=== PATIENT | male | born 1960 | race Caucasian/White ===

== ENCOUNTER 2019-08-15 15:46 | Emergency (ER) | payer OTHER ==
[~2019-08-15] VITALS: Ht 180.3 cm; Wt 59.0 kg
[2019-08-15 15:50] VITALS: BP 97/60
--- NOTE | 2019-08-15 15:53 | NUR ---
[place] [employer] AT BEDSIDE TO SPEAK W/ PT. OFFICER Vida FERNANDEZ.
[2019-08-15] MEDS ORDERED: NACL 0.9% 1,000 ML IV ONE (16:20)
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
[2019-08-15 17:14] LABS: BASOPHILS % (AUTO) 0.3 % (0.0-2.0); EOSINOPHILS # (AUTO) 0.1 K/uL (0-0.4); EOSINOPHILS % (AUTO) 0.8 % (0.0-4.0); HEMATOCRIT 39.3 % (36-52); HEMOGLOBIN 12.7 g/dL (12.0-18.0); LYMPHOCYTES # (AUTO) 1.2 K/uL (2.0-11.5); LYMPHOCYTES % (AUTO) 16.9 % (20.5-51.1); MEAN CORPUSCULAR HEMOGLOBIN 32 pg (27-31); MEAN CORPUSCULAR HGB CONC 32 g/dL (33-37); MEAN CORPUSCULAR VOLUME 98.7 fL (80-94); MONOCYTES # (AUTO) 0.8 K/uL (0.8-1.0); MONOCYTES % (AUTO) 10.7 % (1.7-9.3); NEUTROPHILS # (AUTO) 5.1 K/uL (1.8-7.7); NEUTROPHILS % (AUTO) 71.3 % (42.2-75.2); PLATELET COUNT (AUTO) 255 K/uL (140-450); RED BLOOD CELL COUNT(AUTO) 3.98 MIL/uL (4.20-6.10); RED CELL DISTRIBUTION WIDTH 13.1 % (11.6-13.7); WHITE BLOOD COUNT (AUTO) 7.2 K/uL (4.8-10.8)
[2019-08-15] MEDS ORDERED: KETOROLAC 15 MG/ML VIAL IVP ONE (17:35)
[2019-08-15 18:02] LABS: PROTHROMBIN TIME 10.2 secs (10.8-13.4)
[2019-08-15 18:07] LABS: CARBON DIOXIDE 24.8 mmol/L (21-32); POTASSIUM 3.8 mmol/L (3.5-5.1)
[2019-08-15 18:08] LABS: ALBUMIN 2.8 g/dL (3.4-5.0); CREATININE 1.1 mg/dL (0.7-1.3); TOTAL BILIRUBIN 0.2 mg/dL (0.0-1.0)
--- NOTE | 2019-08-15 18:40 | NUR ---
TO CT VIA W/C.
--- NOTE | 2019-08-15 19:05 | NUR ---
REPORT GIVEN TO ZINA HERNANDEZ. ALL CARE TRANSFERRED.
--- NOTE | 2019-08-15 19:12 | NUR ---
PT BACK FROM CT
[2019-08-15 20:15] VITALS: BP 128/90
--- NOTE | 2019-08-15 20:15 | NUR ---
PT DISCHARGED WITH PAPERWORK. RX MOTRIN, VENTOLIN INHALER. EDUCATED PT REGARDING MEDICATIONS AND S/E. EDUCATED PT REGARDING D/C DIAGNOSIS AND INSTRUCTIONS. PT VERBALIZED UNDERSTANDING OF TEACHING. TOLD PT TO FOLLOW UP WITH PCP AND WHEN TO RETURN TO ED. PT VSS. ALL QUESTIONS ANSWERED.
== END 2019-08-15 20:15 | disposition home or self-care (01) ==
LOC: MED 15:46
DX: S20.212A Contusion of left front wall of thorax, initial encounter (principal); J44.9 Chronic obstructive pulmonary disease, unspecified; Z76.0 Encounter for issue of repeat prescription; Y08.89XA Assault by other specified means, initial encounter; Y93.89 Activity, other specified; Y92.89 Other specified places as the place of occurrence of the external cause; Y99.8 Other external cause status
CPT/HCPCS: 36415; 71045; 74177; 80053; 85025; 85610; 96374; 99284; J1885; J7030; Q0092; Q9967

== ENCOUNTER 2020-01-03 19:03 | Emergency (ER) | payer OTHER ==
[~2020-01-03] VITALS: Ht 180.3 cm; Wt 59.0 kg
[2020-01-03 19:22] VITALS: BP 131/62
--- NOTE | 2020-01-03 19:22 | NUR ---
PT AMBULATORY WITH STEADY GAIT TO BED #9
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
--- NOTE | 2020-01-03 19:36 | NUR ---
Dr. Loomis examining patient.
[2020-01-03 19:51] VITALS: BP 131/62
--- NOTE | 2020-01-03 19:51 | NUR ---
Patient discharged with v/s stable. Written and verbal after care instructions given and explained. Patient alert, oriented and verbalized understanding of instructions. Ambulatory with steady gait. All questions addressed prior to discharge. ID band removed. Patient advised to follow up with PMD. Rx of NAPROSYN, BACTRIM given. Patient educated on indication of medication including possible reaction and side effects. Opportunity to ask questions provided and answered.
== END 2020-01-03 19:51 | disposition home or self-care (01) ==
LOC: MED 19:03
DX: L02.211 Cutaneous abscess of abdominal wall (principal)
CPT/HCPCS: 99283

== ENCOUNTER 2020-01-13 16:53 | Emergency (ER) | payer OTHER ==
[~2020-01-13] VITALS: Ht 180.3 cm; Wt 60.3 kg
[2020-01-13 16:54] VITALS: BP 127/85
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
--- NOTE | 2020-01-13 17:23 | NUR ---
DR BRUNO AT BEDSIDE EXAMINING PT
[2020-01-13 17:42] VITALS: BP 127/85
--- NOTE | 2020-01-13 17:44 | NUR ---
Patient discharged with v/s stable. Written and verbal after care instructions given and explained. Patient alert, oriented and verbalized understanding of instructions. Ambulatory with steady gait. All questions addressed prior to discharge. ID band removed. Patient advised to follow up with PMD. Rx of BACITRACIN AND BACTRIM given. Patient educated on indication of medication including possible reaction and side effects. Opportunity to ask questions provided and answered.
== END 2020-01-13 17:44 | disposition home or self-care (01) ==
LOC: MED 16:53
DX: L02.216 Cutaneous abscess of umbilicus (principal); F17.200 Nicotine dependence, unspecified, uncomplicated; Z48.01 Encounter for change or removal of surgical wound dressing
CPT/HCPCS: 99283

== ENCOUNTER 2020-02-23 09:40 | Emergency (ER) | payer OTHER ==
[~2020-02-23] VITALS: Ht 170.2 cm; Wt 59.0 kg
--- NOTE | 2020-02-23 09:40 | NUR ---
Patient BIBA ALS, transferred to bed 2. RN evaluating patient at bedside.
--- NOTE | 2020-02-23 09:46 | NUR ---
Dr. Camargo is evaluating the patient at bedside.
[2020-02-23] MEDS ORDERED: MORPHINE SULFATE 4 MG/ML SYR IVP ONE (09:50)
[2020-02-23] MEDS ORDERED: ONDANSETRON 4 MG/2 ML VIAL IVP ONE (09:50)
[2020-02-23 09:58] VITALS: BP 129/56
--- NOTE | 2020-02-23 10:06 | NUR ---
c/o sudden onset of sharp cramping type pain lower abdomen s/p eating sardines this am[[denies n/v/d at this time--- denies injury
--- NOTE | 2020-02-23 10:13 | NUR ---
urinal placed by bedside; pt reminded to provide urine sample
--- NOTE | 2020-02-23 10:20 | NUR ---
pt admits to have had contrast iv before with no complications. pt signed consent for ct with contrast.
[2020-02-23 10:21] LABS: ALBUMIN 3.6 g/dL (3.4-5.0); ANION GAP 11.7 (8-16); CREATININE 1.5 mg/dL (0.6-1.3); POTASSIUM 3.7 mmol/L (3.5-5.1); TOTAL BILIRUBIN 0.2 mg/dL (0.0-1.0)
[2020-02-23 10:28] LABS: BASOPHILS % (AUTO) 0.2 % (0.0-2.0); EOSINOPHILS % (AUTO) 0.3 % (0.0-4.0); HEMATOCRIT 39.6 % (36-52); HEMOGLOBIN 13.1 g/dL (12.0-18.0); LYMPHOCYTES # (AUTO) 0.9 K/uL (2.0-11.5); LYMPHOCYTES % (AUTO) 12.3 % (20.5-51.1); MEAN CORPUSCULAR HEMOGLOBIN 35 pg (27-31); MEAN CORPUSCULAR HGB CONC 33 g/dL (33-37); MEAN CORPUSCULAR VOLUME 104.3 fL (80-94); MONOCYTES # (AUTO) 0.4 K/uL (0.8-1.0); MONOCYTES % (AUTO) 5.8 % (1.7-9.3); NEUTROPHILS # (AUTO) 6.2 K/uL (1.8-7.7); NEUTROPHILS % (AUTO) 81.4 % (42.2-75.2); PLATELET COUNT (AUTO) 188 K/uL (140-450); RED CELL DISTRIBUTION WIDTH 12.2 % (11.6-13.7); WHITE BLOOD COUNT (AUTO) 7.6 K/uL (4.8-10.8)
[2020-02-23] MEDS ORDERED: NACL 0.9% 1,000 ML IV ONE (10:50)
[2020-02-23 10:54] LABS: ACETAMINOPHEN < 0.5 ug/ml (10-30)
--- NOTE | 2020-02-23 11:17 | NUR ---
Patient returned from CT scan. RN re-evaluating patient at bedside.
[2020-02-23] MEDS ORDERED: KETOROLAC 30 MG/ML VIAL IVP ONE (12:15)
--- NOTE | 2020-02-23 12:16 | NUR ---
pt easy to awaken---encouraged again to provide urine sapmple handed urinal to pt --
--- NOTE | 2020-02-23 12:22 | NUR ---
pt admits pain increases with much movement---medicated as written for pain control lab notified of urine sample provided
[2020-02-23 12:36] LABS: APPEARANCE,URINE CLEAR (CLEAR); BILIRUBIN,URINE NEGATIVE (NEGATIVE); BLOOD, URINE 1+ (NEGATIVE); COLOR,URINE YELLOW (YELLOW); LEUKOCYTE ESTERASE ,URINE NEGATIVE (NEGATIVE); NITRITE, URINE NEGATIVE (NEGATIVE); PH,URINE 7.5 (5.0-9.0); UGLUCOSE NEGATIVE (NEGATIVE)
[2020-02-23 12:53] LABS: RBC,URINE 0-5 /HPF (0-5); WBC,URINE 0-5 /HPF (0-5)
[2020-02-23 13:00] LABS: BARBITURATE, URINE NEGATIVE ng/ml (NEG <=200); BENZODIAZEPINE, URINE NEGATIVE ng/mL (NEG <=200); CANNABINOID, URINE NEGATIVE ng/mL (NEG <=50); COCAINE, URINE NEGATIVE ng/mL (NEG <=300); OPIATE, URINE NEGATIVE ng/mL (NEG <=2000); PHENCYCLIDINE SCREEN,URINE NEGATIVE ng/mL (NEG <=25)
[2020-02-23 13:30] VITALS: BP 111/66
--- NOTE | 2020-02-23 13:30 | NUR ---
Patient discharged with v/s stable. Written and verbal after care instructions given and explained. Patient alert, oriented and verbalized understanding of instructions. Ambulatory with steady gait. All questions addressed prior to discharge. ID band removed. Patient advised to follow up with PMD. Rx of FLOMAX given. Patient educated on indication of medication including possible reaction and side effects. Opportunity to ask questions provided and answered.
== END 2020-02-23 13:30 | disposition home or self-care (01) ==
LOC: MED 09:40
DX: S37.19XA Other injury of ureter, initial encounter (principal); X58.XXXA Exposure to other specified factors, initial encounter; Y93.89 Activity, other specified; Y92.89 Other specified places as the place of occurrence of the external cause; Y99.8 Other external cause status; N20.0 Calculus of kidney
CPT/HCPCS: 36415; 74177; 80053; 80305; 81001; 82150; 83605; 83690; 85025; 96374; 96375; 99285; G0480; G0482; J1885; J2270; J2405; J7030; Q9967

== ENCOUNTER 2021-06-22 12:17 | Emergency (ER) | payer OTHER ==
[~2021-06-22] VITALS: Ht 180.3 cm; Wt 59.9 kg
[2021-06-22 12:28] VITALS: BP 114/80
--- NOTE | 2021-06-22 13:49 | NUR ---
MADDY RAHMAN SUTURING PT.
[2021-06-22] MEDS ORDERED: NAPR-54 PO (13:52)
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
--- NOTE | 2021-06-22 14:15 | NUR ---
Patient discharged with v/s stable. Written and verbal after care instructions THUMB FRACTURE given and explained. Patient alert, oriented and verbalized understanding of instructions. Ambulatory with steady gait. All questions addressed prior to discharge. ID band removed. Patient advised to follow up with PMD. Rx of NAPROXEN given. Patient educated on indication of medication including possible reaction and side effects. Opportunity to ask questions provided and answered.
== END 2021-06-22 14:15 | disposition home or self-care (01) ==
LOC: MED 12:17
DX: S62.502A Fracture of unspecified phalanx of left thumb, initial encounter for closed fracture (principal); X58.XXXA Exposure to other specified factors, initial encounter; Y93.89 Activity, other specified; Y92.89 Other specified places as the place of occurrence of the external cause; Y99.8 Other external cause status
CPT/HCPCS: 12001; 73130; 90715; 99283

== ENCOUNTER 2023-02-06 11:01 | Emergency (ER) | payer OTHER ==
[~2023-02-06] VITALS: Ht 180.3 cm; Wt 62.8 kg
[~2023-02-06 11:01] MED LIST: NAPR-54 PO
[2023-02-06 11:28] VITALS: BP 137/107
--- NOTE | 2023-02-06 11:30 | NUR ---
pt to 11 ambulatory
--- NOTE | 2023-02-06 12:07 | NUR ---
ASSUMED PATIENT CARE, NURSING ASSESSMENT COMPLETED. SEEN AND EVALUATED BY PROVIDER BROOK RAMOS COMPLETED.
[2023-02-06] MEDS ORDERED: cefTRIAXone 500 MG in LIDOCAINE MPF 1% 1 ML IM ONE (12:10)
[2023-02-06] MEDS ORDERED: IBUPROFEN 600 MG TAB PO ONE (12:10)
[2023-02-06] MEDS ORDERED: IBUP-2213 PO (12:12)
[2023-02-06] MEDS ORDERED: SULF-59 PO (12:12)
[2023-02-06] MEDS ORDERED: cefTRIAXone 500 MG VIAL ONE (12:14)
[2023-02-06] MEDS ORDERED: LIDOCAINE MPF 1% 5 ML ONE (12:15)
[2023-02-06 12:32] VITALS: BP 128/94
--- NOTE | 2023-02-06 12:33 | NUR ---
Patient discharged with v/s stable. Written and verbal after care instructions given and explained. Patient alert, oriented and verbalized understanding of instructions. Ambulatory with steady gait. All questions addressed prior to discharge. ID band removed. Patient advised to follow up with PMD. Rx of BACTRIM, MOTRIN given. Patient educated on indication of medication including possible reaction and side effects. Opportunity to ask questions provided and answered.
== END 2023-02-06 12:32 | disposition home or self-care (01) ==
LOC: MED 11:01
DX: L02.212 Cutaneous abscess of back [any part, except buttock and flank] (principal); R03.0 Elevated blood-pressure reading, without diagnosis of hypertension; Z79.899 Other long term (current) drug therapy
CPT/HCPCS: 96372; 99283; J0696; J2001

== ENCOUNTER 2023-07-07 18:14 | Emergency (ER) | payer OTHER ==
[~2023-07-07] VITALS: Ht 180.3 cm; Wt 61.7 kg
[~2023-07-07 18:14] MED LIST changes: +IBUP-2213 PO; +SULF-59 PO
[2023-07-07 18:31] VITALS: BP 133/80; PULSE 88; RESP 20; TEMP 98.7; O2SAT 94
[2023-07-07] MEDS ORDERED: LIDOCAINE MPF 1% 10 MG/ML VIAL INJ ONE (19:35)
[2023-07-07 19:43] LABS: BASOPHILS % (AUTO) 0.3 % (0.0-2.0); EOSINOPHILS % (AUTO) 0.4 % (0.0-4.0); HEMATOCRIT 36.9 % (36-52); HEMOGLOBIN 12.5 g/dL (12.0-18.0); LYMPHOCYTES # (AUTO) 0.8 K/uL (2.0-11.5); MEAN CORPUSCULAR HEMOGLOBIN 33 pg (27-31); MEAN CORPUSCULAR HGB CONC 34 g/dL (33-37); MONOCYTES # (AUTO) 0.8 K/uL (0.8-1.0); MONOCYTES % (AUTO) 9.2 % (1.7-9.3); NEUTROPHILS # (AUTO) 6.8 K/uL (1.8-7.7); NEUTROPHILS % (AUTO) 80.1 % (42.2-75.2); PLATELET COUNT (AUTO) 196 K/uL (140-450); RED BLOOD CELL COUNT(AUTO) 3.81 MIL/uL (4.20-6.10); WHITE BLOOD COUNT (AUTO) 8.4 K/uL (4.8-10.8)
[2023-07-07 20:00] LABS: ALBUMIN 3.5 g/dL (3.4-5.0); ANION GAP 9.8 (8-16); CALCIUM 8.6 mg/dL (8.5-10.1); CARBON DIOXIDE 28.2 mmol/L (21-32); TOTAL BILIRUBIN 0.4 mg/dL (0.0-1.0); TOTAL PROTEIN, SERUM 7.1 g/dL (6.4-8.2)
[2023-07-07] MEDS ORDERED: SULF-59 PO (20:58)
[2023-07-07 21:10] VITALS: BP 133/80; PULSE 88; RESP 20; TEMP 98.7; O2SAT 94
== END 2023-07-07 21:10 | disposition home or self-care (01) ==
LOC: MED 18:14
DX: L03.116 Cellulitis of left lower limb (principal); M71.162 Other infective bursitis, left knee; M00.862 Arthritis due to other bacteria, left knee; Z88.5 Allergy status to narcotic agent; Z88.6 Allergy status to analgesic agent; Z79.899 Other long term (current) drug therapy
CPT/HCPCS: 36415; 73562; 80053; 85025; 85651; 86140; 87040; 99284